=== PATIENT | male | born 1955 | race Caucasian/White ===

== ENCOUNTER 2016-09-13 12:11 | Day surgery (SDC) | payer OTHER ==
--- NOTE | ~2016-09-13 | EGD ---
EGD REPORT [facility] [address] [address] NAME: BAM TINAJERO : 53 STATUS : [facility] [place] PAT#: [id number] AGE: 60 ADM/REG DATE : 09/13/16 MR#: [id number] REPORT SERV DATE: 09/13/16 DICTATED BY: CRISTINA ALLEN DATE: 09/13/16 REPORT STATUS : Draft [facility]ANSCRIBED [facility]: [facility] DATE: 09/13/16 [facility] Center Patient Name: Bam Tinajero Date of : 1955 Attending MD: CRISTINA ALLEN MD Procedure Date No Time: 09/13/2016 Procedure: Colonoscopy Indications: High risk colon cancer surveillance: Personal history of colonic polyps, Incidental - Rectal bleeding Referring MD: Leo IRIZARRY II Complications: No immediate complications. Procedure: Pre-Anesthesia Assessment: - ASA Grade Assessment: III - A patient with severe systemic disease. After I obtained informed consent, the scope was passed under direct vision. Throughout the procedure, the patient's blood pressure, pulse, and oxygen saturations were monitored continuously. The CF [id number] was introduced through the anus and advanced to the cecum, identified by appendiceal orifice and ileocecal valve. The colonoscopy was performed without difficulty. The patient tolerated the procedure well. The quality of the bowel preparation was good. Findings: The digital rectal exam was normal. Pertinent negatives include no palpable rectal lesions. Hemorrhoids were found during retroflexion and were mild. A fungating partially obstructing large mass was found in the proximal sigmoid colon. The mass was circumferential. The mass measured four cm in length. In addition, its diameter measured twelve mm. Oozing was present. Biopsies were taken with a cold forceps for histology. Injection (tattooing) chromoscopy with Abbey ink was performed. Impression: - Hemorrhoids. - Rule out malignancy, partially obstructing tumor in the proximal sigmoid colon. Biopsied. Biopsied. Chromoscopy performed. Recommendation: - Patient has a contact number available for emergencies. The signs and symptoms of potential delayed complications were discussed with the patient. Return to normal activities tomorrow. Written discharge instructions were provided to the patient. - Regular diet. EGD REPORT [address] [address] NAME: BAM TINAJERO : 53 STATUS : [facility] [place] PAT#: [id number] AGE: 60 ADM/REG DATE : 09/13/16 MR#: [id number] REPORT SERV DATE: 09/13/16 DICTATED BY: CRISTINA ALLEN DATE: 09/13/16 REPORT STATUS : Draft TRANSCRIBED BY: [employer] DATE: 09/13/16 - Continue present medications. - Await pathology results. - Check liver enzymes (AST, ALT, alkaline phosphatase, bilirubin), hemogram with white blood cell count and platelets, electrolyte panel and CEA today. - Perform a CT scan (computed tomography) of abdomen with contrast and pelvis with contrast at the next available appointment. - Refer to a surgeon. Procedure Code(s): --- Professional --- 07341, Colonoscopy, flexible, proximal to splenic flexure; with biopsy, single or multiple 93266, Colonoscopy, flexible, proximal to splenic flexure; with directed submucosal injection(s), any substance Diagnosis Code(s): --- Professional --- K64.9, Unspecified hemorrhoids D49.0, Neoplasm of unspecified behavior of digestive system Z86.010, Personal history of colonic polyps CPT copyright 2013 [employer]. All rights reserved. The codes documented in this report are preliminary and upon waistline joiner lockstitch review may be revised to meet current compliance requirements. CRISTINA ALLEN MD 09/13/2016 1:59 PM This report has been signed electronically. Number of Addenda: 0 Note Initiated On: 09/13/2016 1:30 PM Scope Withdrawal Time 0 hours 12 minutes 23 seconds
[~2016-09-13 12:11] MED LIST: COZ50 PO; GLUCOPHAGE1000 MG PO; NAP500 PO; PROBIOTIC PO
[2016-09-13 14:31] LABS: BASOPHILS 0.3 %; BASOPHILS ABSOLUTE 0.01 10/3/uL (0.0-0.16); EOSINOPHILS 2.4 %; EOSINOPHILS ABSOLUTE 0.09 10/3/uL (0.0-0.53); HEMOGLOBIN 12.7 g/dL (13.6-17.8); IMMATURE GRANULOCYTES 0.3 %; IMMATURE GRANULOCYTES ABSOLUTE 0.01 10/3/uL (0.0-0.11); LYMPHOCYTES 27.7 %; LYMPHOCYTES ABSOLUTE 1.04 10/3/uL (0.67-4.30); MEAN CORPUS HGB CONC 33.5 g/dL (32.0-36.0); MEAN CORPUSCULAR HEMOGLOB 28.9 pg (26.0-34.0); MEAN CORPUSCULAR VOLUME 86.1 fL (80-100); MEAN PLATELET VOLUME 8.5 fL (9.2-13.0); MONOCYTES 8.5 %; MONOCYTES ABSOLUTE 0.32 10/3/uL (0.21-1.20); NEUTROPHILS 60.8 %; NEUTROPHILS ABSOLUTE 2.29 10/3/uL (2.02-8.40); PLATELET COUNT 176 10/3/uL (150-400); RBC DISTRIBUTION WIDTH 14.6 % (12.0-16.0); WHITE BLOOD CELLS 3.8 10/3/uL (4.5-10.5)
[2016-09-13 14:32] LABS: HEMATOCRIT 37.9 % (40.0-51.0); MANUAL DIFF NO %
[2016-09-13 14:50] LABS: ALBUMIN 3.4 G/DL (3.5-5.0); ALKALINE PHOSPHATASE 77 U/L (45-117); BUN (BLOOD UREA NITROGEN) 22 MG/DL (6-23); CHLORIDE, SERUM 109 MMOL/L (96-112); CO2 (CARBON DIOXIDE) 27 MMOL/L (24-34); CREATININE 0.77 MG/DL (0.70-1.30); DIRECT BILIRUBIN 0.2 MG/DL (0.0-0.4); GFR AFRICAN AMERICAN 114 ML/MIN (>=60); GFR NON AFRICAN AMERICAN 98 ML/MIN (>=60); GLUCOSE, SERUM 131 MG/DL (60-99); INDIRECT BILIRUBIN(NOT ORDER) 0.7 MG/DL (0.1-0.9); SGOT(AST) 33 U/L (5-40); SGPT(ALT) 46 U/L (5-65); SODIUM, SERUM 142 MMOL/L (135-148); TOTAL BILIRUBIN 0.9 MG/DL (0-1.2); TOTAL PROTEIN 6.7 G/DL (6.0-8.5)
[2016-09-13 14:53] LABS: CEA 1.1 NG/ML
[2016-09-28] MEDS ORDERED: FLAXSEED OIL1000 MG PO (08:15)
[2017-01-28] MEDS ORDERED: MULTIPLE VIT PO (10:48)
[2017-01-28] MEDS ORDERED: NAP500 PO (10:49)
[2017-01-28] MEDS ORDERED: ACET500CAP PO (10:50)
== END 2016-09-13 23:59 | disposition home or self-care (01) ==
LOC: DMU 12:11
PROVIDERS: Internal Medicine Gastroenterology
PROC: 0DBN8ZX Excision of Sigmoid Colon, Via Natural or Artificial Opening Endoscopic, Diagnostic (ICD-10-PCS; principal; 2016-09-13 14:00)
PROC: 3E0H8GC Introduction of Other Therapeutic Substance into Lower GI, Via Natural or Artificial Opening Endoscopic (ICD-10-PCS; 2016-09-13 14:00)
DX: Z12.11 Encounter for screening for malignant neoplasm of colon (principal); D12.5 Benign neoplasm of sigmoid colon; K64.9 Unspecified hemorrhoids; E11.9 Type 2 diabetes mellitus without complications; G47.33 Obstructive sleep apnea (adult) (pediatric); Z96.651 Presence of right artificial knee joint; Z86.010 Personal history of colon polyps; Z99.81 Dependence on supplemental oxygen; I10 Essential (primary) hypertension
CPT/HCPCS: 80048; 80076; 82378; 82962; 85025; 88305

== ENCOUNTER 2016-09-29 07:38 | Inpatient (IN) | payer OTHER ==
[2016-09-28 09:10] LABS: HEMATOCRIT 40.1 % (40.0-51.0); HEMOGLOBIN 13.3 g/dL (13.6-17.8)
[2016-09-28 09:31] LABS: CALCIUM, SERUM 9.1 MG/DL (8.5-10.4); CHLORIDE, SERUM 105 MMOL/L (96-112); CO2 (CARBON DIOXIDE) 30 MMOL/L (24-34); CREATININE 0.78 MG/DL (0.70-1.30); GFR AFRICAN AMERICAN 113 ML/MIN (>=60); GFR NON AFRICAN AMERICAN 97 ML/MIN (>=60); GLUCOSE, SERUM 145 MG/DL (60-99); POTASSIUM, SERUM 4.2 MMOL/L (3.5-5.3); SODIUM, SERUM 138 MMOL/L (135-148)
[2016-09-28 09:33] LABS: BUN (BLOOD UREA NITROGEN) 14 MG/DL (6-23)
--- NOTE | ~2016-09-29 | CN ---
Consultation Report [facility] [address] [place]. [address] NAME: BAM TINAJERO : 53 STATUS : ADM IN PAT#: [id number] AGE: 60 ADM/REG DATE : 09/29/16 MR#: [id number] REPORT SERV DATE: 10/01/16 DICTATED BY: DATE: REPORT STATUS : Draft TRANSCRIBED BY: MODL DATE: 10/01/16 CONSULTATION DATE OF CONSULTATION: 10/01/2016 REASON FOR CONSULTATION: Diabetes mellitus and hypertension. IDENTIFYING DATA: GASTROENTEROLOGY: Dr. Gaona. HISTORY OF PRESENT ILLNESS: This is a pleasant 60-year-old morbidly obese gentleman with a history of colon polyps. The patient was admitted for an exploratory lap with partial colectomy which was done on 09/29/2016, and we are currently postop day #2. The patient is a pul-lfffjgh-igcpfnrhm diabetic, who checks his blood sugar every morning or every other morning. The patient is currently on metformin 1000 mg b.i.d. The patient does his fasting blood sugar normally between 130 to 150, but occasionally 200. The patient also has a history of high blood pressure, which runs in the family. The patient's blood pressure usually runs 160s to 170s over 80 to 90. The patient also is morbidly obese with a BMI of 40.9. The patient's history was obtained through careful interview with the patient and his spouse coupled with review in [employer] and [facility] [employer]. PAST MEDICAL HISTORY: Significant for hypertension, obstructive sleep apnea with CPAP use, hemorrhoids, polyps, diabetes mellitus type 2, morbid obesity, history of tobacco abuse with last use in 1991. HOME MEDICATIONS: Flaxseed oil 1000 mg daily, Cozaar 50 mg daily, metformin 1000 mg with breakfast and supper, Naprosyn mg at bedtime, and probiotic daily. ALLERGIES: THE PATIENT HAS NO KNOWN DRUG ALLERGIES. SOCIAL HISTORY: The patient is and lives with his spouse. 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 He denies alcohol, tobacco, or illicit drug use. FAMILY HISTORY: Mother had precancer of the colon for which she had a colon resection, arrhythmias, and hypertension. Father had multiple CVAs, CHF, and hypertension. Sister has no known medical problems. SURGICAL HISTORY: The patient had a right total knee replacement, colonoscopy in 2009 as well as in 08/2016, and a cyst removed from his left shoulder. Consultation Report [facility] [address] [place]. [address] NAME: BAM TINAJERO : [birth year] STATUS : ADM IN PAT#: [id number] AGE: 60 ADM/REG DATE : 09/29/16 MR#: [id number] REPORT SERV DATE: 10/01/16 DICTATED BY: DATE: REPORT STATUS : Draft TRANSCRIBED BY: MODL DATE: 10/01/16 REVIEW OF SYSTEMS: 10-point review of systems negative other than HPI. PHYSICAL EXAMINATION: VITAL SIGNS: Blood pressure is 205/96, heart rate is 83, temperature is 98.2, respirations are 16, O2 saturation is 96% on room air. GENERAL: Morbidly obese male, sitting up in the chair, in no acute distress. NEURO: Head is atraumatic, normocephalic. The patient is alert and oriented x3. Cranial nerves 2 through 12 are grossly intact. Mood is pleasant and appropriate. NECK: Supple with no obvious lymphadenopathy or thyromegaly. Neck veins are flat. Trachea is midline. EENT: Sclerae are nonicteric. Pupils are equal, round, reactive to light and accommodation. Extraocular muscles are within normal limits. Mucous membranes are moist and nares are patent. Tongue is midline without deviation. CHEST: The patient has no pain with palpation. LUNGS: Clear to auscultation bilaterally with normal respiratory effort. The patient's lung sounds are distant secondary to large body habitus. CARDIOVASCULAR: S1 and S2 with no obvious murmurs, rubs, or gallops. Carotids with no obvious bruits. ABDOMEN: Soft, distended with obese abdomen. Has rare bowel sounds. Unable to palpate for organomegaly due to abdominal incision. EXTREMITIES: No significant edema, clubbing, or cyanosis. Pedal pulses are present and equal bilaterally. There are no wounds on his feet or discoloration. SURGICAL WOUND SITE: The patient has an abdominal binder on with Aquacel dressings which are clean, dry, and intact. SKIN: Warm and dry with no unusual rashes or skin lesions, normal color and turgor. PSYCH: The patient is pleasant and appropriate. LABORATORY DATA: Sodium is 136, potassium is 4.1, chloride is 108, BUN is 8, creatinine is 0.80, GFR is 112, glucose is 147. Calcium is 8.9, magnesium is 2.3, phosphorus is 3.1. WBC 6.3, hemoglobin 12.7, hematocrit 38.6, platelets 207. ASSESSMENT AND PLAN: 1. Diabetes mellitus type 2 with hyperglycemia. The patient uses metformin b.i.d. 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 He checks his blood sugar every morning or every other day. The patient's blood sugar usually runs between 130 to 150 and occasionally 200 when he eats poorly. The patient states he has had very little diabetic education, so we are requesting it admin to see the patient prior to discharge. The patient does not remember if he has ever had a hemoglobin A1c, so we are having one done on the blood in labs that was just drawn. The patient is on sliding scale insulin level 2 a.c. and at bedtime. 2. Hypertension. The patient does have extensive family history of hypertension with his grandparents and both of his parents. States his blood pressure usually runs between 160 to 170 over 90 on his losartan. The patient states he does not see Dr. Schaefer his Consultation Report [address] [place]. [address] NAME: BAM TINAJERO : 53 STATUS : ADM IN [facility]#: [id number] AGE: 60 ADM/REG DATE : 09/29/16 MR#: [id number] REPORT SERV DATE: 10/01/16 DICTATED BY: DATE: REPORT STATUS : Draft TRANSCRIBED BY: MODL DATE: 10/01/16 PCP as frequently as he should. We are adding hydrochlorothiazide to his medication regimen as well as placing the patient on p.r.n. hydralazine. 3. Obstructive sleep apnea with CPAP. The patient states that he is very compliant with his CPAP. 4. Morbid obesity. The patient's BMI is 40.9. 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 This was discussed with his who is his driving partner and together they have agreed to workout a plan. We will continue to follow this patient with you while he is here. Please let us know if we can be of any further assistance. SLC/MODL Paulina Seo NP / [phone] CC: Arnel Green Ralph Edward
--- NOTE | ~2016-09-29 | DS ---
Discharge Summary [facility] [address] [facility] [place]. [address] NAME: BAM TINAJERO : 53 STATUS : DIS IN PAT#: [id number] AGE: 60 ADM/REG DATE : 09/29/16 MR#: [id number] REPORT SERV DATE: 10/11/16 DICTATED BY: DARRYN WALKER DATE: 10/10/16 REPORT STATUS : Draft TRANSCRIBED BY: MODMelo DATE: 10/10/16 Data Collection from hospitalization DISCHARGE DIAGNOSIS(ES): 1. 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 2. Hypertension. 3. Diabetes mellitus type 2. 4. Obstructive sleep apnea with CPAP that he does not use. 5. Morbid obesity with body mass index of 42.4. CONSULTATIONS: Paulina Seo NP PROCEDURES PERFORMED: Exploratory laparotomy; partial left colectomy with mobilization of the splenic flexure and hand-sewn colotomy, 09/29/2016. PATHOLOGY: Descending colon segmental resection, invasive adenocarcinoma with mucinous features. MEDICATIONS: Hydrochlorothiazide 25 mg as directed, Cozaar 50 mg every morning, Glucophage 1000 mg with breakfast and supper, probiotic 1 every morning, flaxseed oil 1000 mg daily, and [place] 10/325 one every six hours as needed. CONDITION AT DISCHARGE: Upon discharge, he did appear to be doing well and had no complaints. DISPOSITION: He was discharged home to continue a low-cholesterol, no concentrated carbohydrate 2000 calorie ADA diet with activity as discussed. He was to follow up with me in the office on 10/17/2016. HOSPITAL COURSE: This 60-year-old male had a large sigmoid colon mass with occasional bleeding. He presented for evaluation. He had no constitutional symptoms. No active bleeding. He had decreased caliber of his stools for four months. There was a question of liver mass on screening CT 4-phase imaging of the liver with possible biopsy ordered. He was aware of the INFORMATION ASSURANCE OFFICER of colectomy and wished to proceed. He declined observation. He was admitted for surgery and further treatment. Upon admission to the hospital, he had been taken to the operating room where he did undergo the above procedure. He had tolerated this well and was transferred to the recovery room. On postop day #1, he had no complaints and was tolerating oral intake. He did have good pain control. He was encouraged to increase his activity. On postop day #2, he was afebrile and his vital signs were stable. He had been restarted on metformin. On postop day #2, he had been seen by Paulina Seo for medical management for his diabetes as well as hypertension. She had felt that he was doing well postoperatively, and a hemoglobin A1c was to be checked. He was on level 2 sliding scale insulin. On postop day #3, he was noted to be having severe abdominal cramping and sweats. He had rated his pain at an 8/10 with the cramps. His temperature had been up to 99.2, and his vital signs were stable. He was felt to have a possible ileus. He was encouraged to ambulate. On postop day #4, he was tolerating oral intake and had been ambulating well. He had no abdominal pain noted. He did undergo diabetic education. He had remained in stable condition and was then discharged with the above instructions. Discharge Summary [address] [address] NAME: BAM TINAJERO : 53 STATUS : DIS IN PAT#: [id number] AGE: 60 ADM/REG DATE : 09/29/16 MR#: [id number] REPORT SERV DATE: 10/11/16 DICTATED BY: DARRYN WALKER DATE: 10/10/16 REPORT STATUS : Draft TRANSCRIBED BY: MARIA DE JESUS DATE: 10/10/16 Information collected by: Leo McgowanH.I.T. I submit the above information as my discharge summary. RENA/MARIA DE JESUS Darryn Walker M.D. / [id number] CC: Arnel Green
--- NOTE | ~2016-09-29 | OP ---
Record Of Operation [facility] [address] [place]. [address] NAME: BAM TINAJERO : 53 STATUS : ADM IN PAT#: [id number] AGE: 60 ADM/REG DATE : 09/29/16 MR#: [id number] REPORT SERV DATE: 09/29/16 DICTATED BY: DARRYN WALKER DATE: 09/29/16 REPORT STATUS : Draft TRANSCRIBED BY: MODL DATE: 09/29/16 DATE OF PROCEDURE: 09/29/2016 PREOPERATIVE DIAGNOSES: 1. 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 2. Hypertension. 3. Diabetes mellitus type 2. 4. Obstructive sleep apnea with CPAP that he does not use. 5. Morbid obesity. Body mass index of 42.4. POSTOPERATIVE DIAGNOSES: 1. 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 2. Hypertension. 3. Diabetes mellitus type 2. 4. Obstructive sleep apnea with CPAP that he does not use. 5. Morbid obesity. Body mass index of 42.4. PROCEDURE: 1. Exploratory laparotomy. 2. Partial left colectomy with mobilization of splenic flexure and hand-sewn colotomy. ANESTHESIA: General. SURGEON: Darryn Walker M.D. LEASING MANAGER: [place]. COMPLICATIONS: None. DRAINS: None. ESTIMATED BLOOD LOSS: Less than 50 mL. FINDINGS: The patient was noted to have a large colon cancer of the descending colon, sigmoid colon junction. The colon was removed with 4 to 5 cm proximal and distal margin with the involved lymph node basin, and closed with a hand-sewn anastomosis without tension after splenic mobilization. OPERATIVE TECHNIQUE: The patient was brought to the operating room and placed on the table in supine position. He underwent general endotracheal anesthesia. He had an ERAS protocol and TAP block. He underwent general endotracheal anesthesia, and was prepped and draped in sterile fashion, and a Page catheter was placed. Sequential hose were in place. He was placed in lithotomy position. A time-out was completed and he was prepped and draped in sterile fashion. A 10 blade knife was used to make incision from the pubic tubercle around the right side of the umbilicus to the mid abdomen. The abdomen was then entered and explored, there was no evidence of any other masses. The mass was clearly palpable with ink Record Of Operation [facility] [address] [facility] [place]. [address] NAME: BAM TINAJERO : 53 STATUS : ADM IN PAT#: [id number] AGE: 60 ADM/REG DATE : 09/29/16 MR#: [id number] REPORT SERV DATE: 09/29/16 DICTATED BY: DARRYN WALKER DATE: 09/29/16 REPORT STATUS : Draft TRANSCRIBED BY: MODL DATE: 09/29/16 proximal and distal. There was no evidence of any liver masses, masses of the peritoneum, or other palpable masses within the mesentery of the involved lymph node basin of the mesentery. At this point, the Bookwalter retractor was placed and positioned to optimize visualization of the abdomen. The left colon was mobilized from the pelvis to the sigmoid flexure along the white line of Toldt using electrocautery. This dissection continued around the entire splenic flexure and the splenic flexure was brought down into the mid abdomen with some mobilization using electrocautery. The mobilization of the splenic flexure was felt necessary, due to the height of the tumor in the descending sigmoid junction. At this point, the mesentery of the rectum was then scored and brought at the base of the retroperitoneum toward the mid descending colon. The window was then created in the mesenteric border of the descending colon and the mid descending colon, and at this bowel was then divided with a linear stapler with approximately 45 cm of proximal margin. The distal margin was then identified at the mid sigmoid colon with the similar length and a CORNELIA stapler was used once again to divide the bowel. The involved mesentery was then sequentially divided with the ligature at the retroperitoneum. Care was taken not to involve the retroperitoneal structures. The ureters were palpated early and pushed inferiorly out of the dissection. At this point, the entire segment was removed and Pathology reviewed the specimen with adequate margins. The patient had an attempt at the dilator being placed per anus and could not reach the resection line and for this reason, due to the patient's size and not wanting to mobilize anymore of the transverse colon. The decision was made to perform a hand-sewn anastomosis without tension. The bowel was prepared with electrocautery to remove some pericolonic fat. The posterior row was placed with interrupted 3-0 silk sutures. The staple lines were then cut with a bowel clamp on each end and the mucosa was then reapproximated first with a running locking posterior suture of 3-0 Vicryl and a transition [place] stitch was used anteriorly to complete the anastomosis without encroachment of the bowel. The anastomosis was palpated and noted to be widely patent. At this point, the Lembert sutures with 3-0 silk stitches were used to over sew the anterior portion of the anastomosis. It was once again checked and noted to be widely patent. The entire suture line was oversewn with 3-0 silk sutures and it was patent and viable. The abdomen was then thoroughly irrigated. There was no evidence of any bleeding or other visual abnormalities. The small mesenteric defect was reapproximated using interrupted 3-0 Vicryl sutures at the descending colon and sigmoid colon mesentery. At this point, the anterior fascia was reapproximated using a running looped 0 PDS suture. The subcutaneous tissues were then thoroughly irrigated and reapproximated using Vicryl sutures. The skin edges were reapproximated using running subcuticular Monocryl suture. Dermabond was applied. A Aquacel Ag surgical dressing was applied. He was extubated and taken to the recovery room in stable condition. All sponge needle counts were reported correct. /MARIA DE JESUS Darryn Walker M.D. / [id number] Record Of Operation [address] [address] NAME: BAM TINAJERO : 53 STATUS : ADM IN [facility]#: [id number] AGE: 60 ADM/REG DATE : 09/29/16 MR#: [id number] REPORT SERV DATE: 09/29/16 DICTATED BY: DARRYN WALKER DATE: 09/29/16 REPORT STATUS : Draft TRANSCRIBED BY: MARIA DE JESUS DATE: 09/29/16 CC: Arnel Green RALPH EDWARD II
[~2016-09-29 07:38] MED LIST changes: +FLAXSEED OIL1000 MG PO
[2016-09-30 06:12] LABS: ALBUMIN 3.3 G/DL (3.5-5.0); BUN (BLOOD UREA NITROGEN) 12 MG/DL (6-23); CALCIUM, SERUM 8.7 MG/DL (8.5-10.4); CHLORIDE, SERUM 107 MMOL/L (96-112); CO2 (CARBON DIOXIDE) 29 MMOL/L (24-34); CREATININE 0.95 MG/DL (0.70-1.30); GFR AFRICAN AMERICAN 100 ML/MIN (>=60); GFR NON AFRICAN AMERICAN 86 ML/MIN (>=60); GLUCOSE, SERUM 149 MG/DL (60-99); PHOSPHORUS, SERUM 3.1 MG/DL (2.5-4.5); SODIUM, SERUM 140 MMOL/L (135-148)
[2016-09-30 06:14] LABS: POTASSIUM, SERUM 4.3 MMOL/L (3.5-5.3)
[2016-09-30 06:24] LABS: BASOPHILS 0 %; EOSINOPHILS 0.4 %; EOSINOPHILS ABSOLUTE 0.03 10/3/uL (0.0-0.53); IMMATURE GRANULOCYTES 0.3 %; IMMATURE GRANULOCYTES ABSOLUTE 0.02 10/3/uL (0.0-0.11); LYMPHOCYTES 12.4 %; LYMPHOCYTES ABSOLUTE 0.85 10/3/uL (0.67-4.30); MEAN CORPUS HGB CONC 32.4 g/dL (32.0-36.0); MEAN CORPUSCULAR HEMOGLOB 28.5 pg (26.0-34.0); MEAN CORPUSCULAR VOLUME 87.9 fL (80-100); MEAN PLATELET VOLUME 8.9 fL (9.2-13.0); MONOCYTES 8.2 %; MONOCYTES ABSOLUTE 0.56 10/3/uL (0.21-1.20); NEUTROPHILS 78.7 %; NEUTROPHILS ABSOLUTE 5.38 10/3/uL (2.02-8.40); PLATELET COUNT 215 10/3/uL (150-400); RBC DISTRIBUTION WIDTH 15.2 % (12.0-16.0); RED CELL COUNT 4.21 10/6/uL (4.7-6.1)
[2016-09-30 06:26] LABS: MANUAL DIFF NO %; WHITE BLOOD CELLS 6.8 10/3/uL (4.5-10.5)
[2016-10-01 11:46] LABS: BASOPHILS 0.2 %; BASOPHILS ABSOLUTE 0.01 10/3/uL (0.0-0.16); EOSINOPHILS ABSOLUTE 0.06 10/3/uL (0.0-0.53); HEMATOCRIT 38.6 % (40.0-51.0); HEMOGLOBIN 12.7 g/dL (13.6-17.8); IMMATURE GRANULOCYTES 0.2 %; IMMATURE GRANULOCYTES ABSOLUTE 0.01 10/3/uL (0.0-0.11); LYMPHOCYTES 17.6 %; LYMPHOCYTES ABSOLUTE 1.11 10/3/uL (0.67-4.30); MEAN CORPUS HGB CONC 32.9 g/dL (32.0-36.0); MEAN CORPUSCULAR HEMOGLOB 28.7 pg (26.0-34.0); MEAN CORPUSCULAR VOLUME 87.1 fL (80-100); MONOCYTES 6.7 %; MONOCYTES ABSOLUTE 0.42 10/3/uL (0.21-1.20); NEUTROPHILS 74.3 %; NEUTROPHILS ABSOLUTE 4.68 10/3/uL (2.02-8.40); PLATELET COUNT 207 10/3/uL (150-400); RBC DISTRIBUTION WIDTH 15.1 % (12.0-16.0); RED CELL COUNT 4.43 10/6/uL (4.7-6.1); WHITE BLOOD CELLS 6.3 10/3/uL (4.5-10.5)
[2016-10-01 11:47] LABS: MANUAL DIFF NO %
[2016-10-01 11:58] LABS: CALCIUM, SERUM 8.9 MG/DL (8.5-10.4); CHLORIDE, SERUM 108 MMOL/L (96-112); CO2 (CARBON DIOXIDE) 28 MMOL/L (24-34); GFR AFRICAN AMERICAN 112 ML/MIN (>=60); GFR NON AFRICAN AMERICAN 96 ML/MIN (>=60); GLUCOSE, SERUM 147 MG/DL (60-99); POTASSIUM, SERUM 4.1 MMOL/L (3.5-5.3); SODIUM, SERUM 136 MMOL/L (135-148)
[2016-10-01 12:00] LABS: BUN (BLOOD UREA NITROGEN) 8 MG/DL (6-23)
[2016-10-02 08:41] LABS: BASOPHILS 0.2 %; BASOPHILS ABSOLUTE 0.01 10/3/uL (0.0-0.16); EOSINOPHILS 1.4 %; EOSINOPHILS ABSOLUTE 0.09 10/3/uL (0.0-0.53); HEMOGLOBIN 13.3 g/dL (13.6-17.8); IMMATURE GRANULOCYTES 0.2 %; IMMATURE GRANULOCYTES ABSOLUTE 0.01 10/3/uL (0.0-0.11); LYMPHOCYTES 14.1 %; LYMPHOCYTES ABSOLUTE 0.91 10/3/uL (0.67-4.30); MEAN CORPUS HGB CONC 33.3 g/dL (32.0-36.0); MEAN CORPUSCULAR HEMOGLOB 28.7 pg (26.0-34.0); MEAN CORPUSCULAR VOLUME 86.4 fL (80-100); MEAN PLATELET VOLUME 8.6 fL (9.2-13.0); MONOCYTES 7.8 %; NEUTROPHILS 76.3 %; NEUTROPHILS ABSOLUTE 4.93 10/3/uL (2.02-8.40); PLATELET COUNT 202 10/3/uL (150-400); RBC DISTRIBUTION WIDTH 15.1 % (12.0-16.0); RED CELL COUNT 4.63 10/6/uL (4.7-6.1); WHITE BLOOD CELLS 6.5 10/3/uL (4.5-10.5)
[2016-10-02 08:44] LABS: MANUAL DIFF NO %
[2016-10-02 09:04] LABS: BUN (BLOOD UREA NITROGEN) 11 MG/DL (6-23); CALCIUM, SERUM 9.4 MG/DL (8.5-10.4); CHLORIDE, SERUM 105 MMOL/L (96-112); CO2 (CARBON DIOXIDE) 26 MMOL/L (24-34); CREATININE 0.75 MG/DL (0.70-1.30); GFR AFRICAN AMERICAN 115 ML/MIN (>=60); GFR NON AFRICAN AMERICAN 99 ML/MIN (>=60); GLUCOSE, SERUM 151 MG/DL (60-99); POTASSIUM, SERUM 3.9 MMOL/L (3.5-5.3); SODIUM, SERUM 139 MMOL/L (135-148)
[2016-10-03 07:13] LABS: BASOPHILS 0.2 %; BASOPHILS ABSOLUTE 0.01 10/3/uL (0.0-0.16); EOSINOPHILS 2.3 %; EOSINOPHILS ABSOLUTE 0.13 10/3/uL (0.0-0.53); HEMATOCRIT 39.8 % (40.0-51.0); HEMOGLOBIN 13.1 g/dL (13.6-17.8); IMMATURE GRANULOCYTES 0.2 %; IMMATURE GRANULOCYTES ABSOLUTE 0.01 10/3/uL (0.0-0.11); LYMPHOCYTES 12.5 %; LYMPHOCYTES ABSOLUTE 0.71 10/3/uL (0.67-4.30); MEAN CORPUS HGB CONC 32.9 g/dL (32.0-36.0); MEAN CORPUSCULAR HEMOGLOB 28.3 pg (26.0-34.0); MEAN PLATELET VOLUME 8.5 fL (9.2-13.0); MONOCYTES 11.3 %; MONOCYTES ABSOLUTE 0.64 10/3/uL (0.21-1.20); NEUTROPHILS 73.5 %; NEUTROPHILS ABSOLUTE 4.17 10/3/uL (2.02-8.40); PLATELET COUNT 209 10/3/uL (150-400); RED CELL COUNT 4.63 10/6/uL (4.7-6.1); WHITE BLOOD CELLS 5.7 10/3/uL (4.5-10.5)
[2016-10-03 07:17] LABS: MANUAL DIFF NO %
[2016-10-03 07:23] LABS: BUN (BLOOD UREA NITROGEN) 11 MG/DL (6-23); CHLORIDE, SERUM 103 MMOL/L (96-112); CO2 (CARBON DIOXIDE) 26 MMOL/L (24-34); CREATININE 0.77 MG/DL (0.70-1.30); GFR AFRICAN AMERICAN 114 ML/MIN (>=60); GFR NON AFRICAN AMERICAN 98 ML/MIN (>=60); GLUCOSE, SERUM 146 MG/DL (60-99); SODIUM, SERUM 136 MMOL/L (135-148)
[2016-10-03] MEDS ORDERED: NORCO1 TAB PO (09:19)
[2016-10-03] MEDS ORDERED: HYDROCHLOROT25 MG PO (09:20)
[2017-01-28] MEDS ORDERED: MULTIPLE VIT PO (10:48)
[2017-01-28] MEDS ORDERED: NAP500 PO (10:49)
[2017-01-28] MEDS ORDERED: ACET500CAP PO (10:50)
== END 2016-10-03 11:38 | disposition home or self-care (01) | DRG 330 ==
LOC: SDC/OF 07:38 → 5SO 15:25
PROVIDERS: Internal Medicine Nephrology; Nurse Practitioner Family; Surgery
PROC: 0DBN0ZZ Excision of Sigmoid Colon, Open Approach (ICD-10-PCS; principal; 2016-09-29 10:15)
DX: C18.7 Malignant neoplasm of sigmoid colon (principal); Z68.41 Body mass index [BMI] 40.0-44.9, adult; K56.7 Ileus, unspecified; E66.01 Morbid (severe) obesity due to excess calories; E11.65 Type 2 diabetes mellitus with hyperglycemia; I10 Essential (primary) hypertension; G47.33 Obstructive sleep apnea (adult) (pediatric); Z79.899 Other long term (current) drug therapy; Z79.84 Long term (current) use of oral hypoglycemic drugs; Z80.0 Family history of malignant neoplasm of digestive organs; Z52.3 Bone marrow donor; Z82.49 Family history of ischemic heart disease and other diseases of the circulatory system
CPT/HCPCS: 74020; 80048; 80069; 82962; 83036; 83735; 84443; 85014; 85018; 85025; 88309; 88313; 88341; 88342; 93005; A9270-GY; J0360; J0461; J0690; J2250; J2270; J2405; J2710; J2795; J3010; P9045